=== PATIENT | female | born 1970 | race Caucasian/White ===

== ENCOUNTER 2021-02-16 13:07 | Observation (INO) | payer OTHER ==
[~2021-02-16] VITALS: Ht 160 cm; Wt 113.4 kg
[~2021-02-16 13:07] MED LIST: TOPAMAX100 MG PO
[2021-02-16 14:02] LABS: HEMOGLOBIN 13.7 gm/dl (12.3-15.3); RED BLOOD COUNT 4.78 M/UL (4.00-5.10)
[2021-02-16 15:14] LABS: BUN/CREATININE RATIO 17 (0-10)
[2021-02-17 08:19] LABS: HEMOGLOBIN 13.3 gm/dl (12.3-15.3); RED BLOOD COUNT 4.94 M/UL (4.00-5.10)
[2021-02-17 08:22] LABS: WHITE BLOOD COUNT 22.1 K/UL (4.5-11.0)
[2021-02-17 08:43] LABS: BUN/CREATININE RATIO 13 (0-10)
[2021-02-17] MEDS ORDERED: ROBITUSSIN DM UD5 ML PO (10:51)
[2021-02-17] MEDS ORDERED: OMNICEF 300 MG300 MG PO (10:51)
[2021-02-17] MEDS ORDERED: MEDROL DOSEPAK 24 MG PO (10:51)
[2021-02-19 05:11] LABS: HBSAG SCREEN Negative (Negative); HEP A AB, IGM Negative (Negative); HEP B CORE AB, IGM Negative (Negative); HEP C VIRUS AB <0.1 (0.0-0.9)
== END 2021-02-17 13:52 | disposition home or self-care (01) ==
LOC: ER1 13:07 → MED SURG 4 16:24 → CDU 16:24 → MED SURG 4 18:26
PROVIDERS: Emergency Medicine; Physician Assistant Medical; ADMIT Internal Medicine
DX: J18.9 Pneumonia, unspecified organism (principal); D72.829 Elevated white blood cell count, unspecified; F19.10 Other psychoactive substance abuse, uncomplicated; G35 Multiple sclerosis; F17.210 Nicotine dependence, cigarettes, uncomplicated; Z23 Encounter for immunization; Z88.5 Allergy status to narcotic agent; Z20.822 Contact with and (suspected) exposure to COVID-19
CPT/HCPCS: 36415; 71045; 71250; 80048; 80053; 80074; 80307; 81001; 82550; 82553; 83735; 83874; 84484; 85025; 85027; 87040; 93005; 94640; 94664; 94760; 96374; 96375; 96376; 99285; G0378; J0456; J0696; J1885; J2405; J2930; J3370; J7030; J7050; U0002